=== PATIENT | male | born 1955 | race Caucasian/White ===

== ENCOUNTER 2023-02-25 00:38 | Day surgery (SDC) | payer MEDICARE, OTHER, SELFPAY ==
[2023-02-10 10:56] VITALS: BMI 39.8
[2023-02-25 07:38] VITALS: BP 163/95; PULSE 95; RESP 20; TEMP 36.4; O2SAT 99
--- NOTE | 2023-02-25 07:50 | WPDHPUPDATE1 ---
History and Physical Update Update Date/Time: 02/25/23 07:50 History and Physical has been reviewed, including an updated exam of the patient. There are NO changes in the patient's condition. Risks, benefits, and alternatives have been discussed and questions answered. Patient agrees to proceed with procedure.
[2023-02-25] MEDS: LACTATED RINGERS 1,000 ML 150 ML IV CONT (08:02)
--- NOTE | 2023-02-25 08:12 | P.PNAN_ITS ---
Anes - Initial Pre Proc Eval Procedure: Operation Date: 02/25/23 09:00 Proposed Procedures p Esophagogastroduodenoscopy - Pratik Perez MD Date/Time: 02/25/23 08:12 Surgeon: Pratik Perez MD Pre Op Diagnosis: unspecified abdominal pain Patient Data Age: 67 Gender: M Height: 1.8 m Weight: 130.2 kg Last Vital Signs Temp 36.4 C 02/25/23 07:38 Pulse 95 02/25/23 07:38 Resp 20 02/25/23 07:38 BP 163/95 H 02/25/23 07:38 Pulse Ox 99 02/25/23 07:38 O2 Del Method Room Air 02/25/23 07:38 Allergies Allergy/AdvReac Type Severity Reaction Status Date / Time No Known Allergies Allergy Verified 02/25/23 07:37 Home Medications Medication Instructions Recorded Confirmed Type albuterol sulfate 90 mcg/actuation 2 inh inhalation Q6H PRN Shortness 02/03/23 02/10/23 History breath activated powder inhaler Of Breath dicyclomine 10 mg capsule 10 mg PO TID PRN abdominal pain 02/03/23 02/10/23 Rx #60 caps rabeprazole 20 mg tablet,delayed 20 mg PO DAILY 02/03/23 02/10/23 History release (AcipHex) lisinopril 40 mg tablet 40 mg PO DAILY 02/10/23 02/10/23 History meloxicam 7.5 mg tablet 7.5 mg PO BID PRN Pain 02/10/23 02/10/23 History Patient hx anesthesia problems: none Family hx anesthesia problems: none Results Review: All pre-operative results and documents have been reviewed as part of the pre- operative evaluation. REPLACED BY [facility] Past Medical History Medical History Abdominal pain Social History Social History Smoking packs per day: 2 Smoking cigarettes per day: 40.0 Years smoked: 20 Smoking pack-years: 40.00 Smoking status: Former smoker Tobacco type: cigarettes Alcohol intake: current Drinks per week: 1 Substance use type: does not use Living arrangements: with family Spiritual care concerns: No Anes - Eval Final PreProcedure Day of Procedure 02/25/23 08:12 Patient weight: morbidly obese Heart: regular rate and rhythm Lungs: clear to auscultation Airway: Mallampati scale class II Neurological: alert and oriented Last oral intake: >/= 8 hours ASA classification: III Emergent: no Anesthetic plan: proceed Anesthesia type and monitoring: general GIVS and standard monitoring Results Review: All pre-operative results and documents have been reviewed as part of the pre- operative evaluation. Informed Consent: The patient's anesthetic plan and its attendant risks and benefits were discussed with the patient/family/POA. Questions were solicited and answers provided to the satisfaction of the patient/family/POA.
[2023-02-25 08:35] VITALS: BP 128/80; PULSE 91; RESP 17; O2SAT 98
[2023-02-25 08:45] VITALS: BP 123/81; PULSE 83; RESP 20; O2SAT 98
[2023-02-25 08:55] VITALS: BP 120/84; PULSE 78; RESP 19; O2SAT 98
== END 2023-02-25 09:02 | disposition home or self-care (01) ==
PROVIDERS: PCP Internal Medicine; Visit Provider Internal Medicine Gastroenterology
PROC: 0DJ08ZZ Inspection of Upper Intestinal Tract, Via Natural or Artificial Opening Endoscopic (ICD-10-PCS; CPT 43235; principal; 2023-02-25 09:00)
DX: R10.31 Right lower quadrant pain (principal); K31.7 Polyp of stomach and duodenum; Z79.51 Long term (current) use of inhaled steroids; Z87.891 Personal history of nicotine dependence; E66.01 Morbid (severe) obesity due to excess calories; Z68.41 Body mass index [BMI] 40.0-44.9, adult
CPT/HCPCS: 43251; 43239; 87081; 88305; J2704; J7120